=== PATIENT | female | born 1980 | race Caucasian/White ===

== ENCOUNTER 2018-01-06 10:54 | Emergency (ER) | payer OTHER ==
[~2018-01-06] VITALS: Ht 157.5 cm; Wt 65.0 kg
[~2018-01-06 10:54] MED LIST: DOXYCYCLINE HY100 MG PO; LISINOPRIL10 MG PO; [UNRECOGNIZED DRUG - OTHER]
[2018-01-06 11:27] LABS: HEMATOCRIT 38.7 % (36.0-46.0); MCH 25.7 PG (29.0-34.0); MCHC 33.6 G/DL (30.0-36.0); MCV 76.6 FL (83-99); PLATELET COUNT 300 K/uL (156-360); RBC DIS.WIDTH-CV 13.2 % (11.8-14.6); RBC DIS.WIDTH-SD 36.2 % (39-53); RED BLOOD COUNT 5.05 M/uL (3.80-5.20); WHITE BLOOD COUNT 4.4 K/uL (4.1-10.2)
[2018-01-06 13:22] LABS: APPEARANCE SL.HAZY ((CLEAR)); BILIRUBIN NEGATIVE; BLOOD MODERATE; COLOR YELLOW ((YELLOW)); GLUCOSE (STRIP) NEGATIVE; KETONES NEGATIVE; LEUKOCYTES TRACE; NITRITE NEGATIVE; PROTEIN (STRIP) NEGATIVE; SPECIFIC GRAVITY 1.008 (1.000-1.030); UROBILINOGEN 0.2 MG/DL (0.2-1.0)
[2018-01-06 13:24] LABS: BACTERIA NONE SEEN /HPF; EPITHELIAL CELLS 1+ /HPF; MUCUS TRACE /LPF; RED BLOOD CELLS 0-5 /HPF (0-5); UCUL ADDED? NO; WHITE BLOOD CELLS 0-5 /HPF (0-5)
[2018-01-06 14:04] VITALS: BP 154/94
== END 2018-01-06 14:05 | disposition home or self-care (01) ==
LOC: EME 10:54
DX: O20.0 Threatened abortion (principal); O10.911 Unspecified pre-existing hypertension complicating pregnancy, first trimester; Z3A.01 Less than 8 weeks gestation of pregnancy
CPT/HCPCS: 76801; 81003; 84702; 85027; 86900; 86901; 99281; 99284

== ENCOUNTER → 2018-01-15 | Outpatient (CLI) | payer OTHER ==
[~2018-01-15] MED LIST changes: +DOXYCYCLINE HY100 M3 PO; +IBUPROFEN800 MG PO; +NORMODYNE,TRAN200 MG PO
== END | disposition home or self-care (01) ==
LOC: CDC 10:42
DX: Z01.810 Encounter for preprocedural cardiovascular examination (principal)
CPT/HCPCS: 93000

== ENCOUNTER 2018-01-18 08:24 | Day surgery (SDC) | payer OTHER ==
[~2018-01-18] VITALS: Ht 157.5 cm; Wt 62.1 kg
[~2018-01-18 08:24] MED LIST changes: -DOXYCYCLINE HY100 M3 PO; -IBUPROFEN800 MG PO
[2018-01-18 08:54] VITALS: BP 140/78
[2018-01-18 09:13] LABS: BASOPHIL (%) 0 % (0-1); EOSINOPHIL (%) 3.4 % (0-5); EOSINOPHIL COUNT 0.2 K/uL (0-0.3); HEMATOCRIT 36.6 % (36.0-46.0); IMMATURE GRANULOCYTE (%) 0.2 % (0.0-0.7); LYMPHOCYTE (%) 27.5 % (15-42); LYMPHOCYTE COUNT 1.2 K/uL (1.0-2.8); MCH 25.2 PG (29.0-34.0); MCHC 32.8 G/DL (30.0-36.0); MCV 76.9 FL (83-99); MONOCYTE (%) 9.8 % (3-12); MONOCYTE COUNT 0.4 K/uL (0-0.8); NEUTROPHIL (%) 59.1 % (45-76); NEUTROPHIL COUNT 2.6 K/uL (1.8-6.4); PLATELET COUNT 277 K/uL (156-360); RBC DIS.WIDTH-CV 12.6 % (11.8-14.6); RED BLOOD COUNT 4.76 M/uL (3.80-5.20); WHITE BLOOD COUNT 4.5 K/uL (4.1-10.2)
[2018-01-18] MEDS ORDERED: DOXYCYCLINE HY100 M3 PO (11:04)
[2018-01-18] MEDS ORDERED: IBUPROFEN800 MG PO (11:05)
[2018-01-18 11:59] VITALS: BP 135/73
[2018-01-18 12:44] VITALS: BP 134/66
== END 2018-01-18 12:47 | disposition home or self-care (01) ==
LOC: SDC 08:24
PROVIDERS: Advanced Practice Midwife
PROC: 10D17ZZ Extraction of Products of Conception, Retained, Via Natural or Artificial Opening (ICD-10-PCS; principal; 2018-01-18)
DX: O02.1 Missed abortion (principal); I10 Essential (primary) hypertension
CPT/HCPCS: 85025; 86850; 86900; 86901; 88305; J0690; J1100; J1885; J2250; J2405; J3010